=== PATIENT | female | born 1975 | race Caucasian/White ===

== ENCOUNTER 2021-01-10 06:00 | Day surgery (SDC) | payer OTHER ==
[~2021-01-10] VITALS: Ht 165.1 cm; Wt 93.0 kg
[2021-01-10 06:38] LABS: HCG,QUAL RESULT NEGATIVE (NEGATIVE)
[2021-01-10] MEDS ORDERED: DESFLURANE 15 MIN GAS INH ONE (07:22)
[2021-01-10] MEDS ORDERED: DEXAMETHASONE SOD PHOSPHATE 4 MG/ML VIAL IVP ONE (07:22)
[2021-01-10] MEDS ORDERED: MUPIROCIN 2% TOPICAL OINTMENT 22 GM TP ONE (07:22)
[2021-01-10] MEDS ORDERED: LR 500 ML IV.SOLN IV ONE (07:22)
[2021-01-10] MEDS ORDERED: LIDOCAINE/EPI 1% 1:100000 20 ML VIAL INJ ONE (07:22)
[2021-01-10] MEDS ORDERED: SUGAMMADEX SODIUM 200 MG/2 ML VIAL IV ONE (07:22)
[2021-01-10] MEDS ORDERED: ROCURONIUM BROMIDE 10 MG/ML (ZEMURON) IV ONE (07:22)
[2021-01-10] MEDS ORDERED: LIDOCAINE 2%, 20 ML MDV INJ ONE (07:22)
[2021-01-10] MEDS ORDERED: NS 1000 ML IV.SOLN IV ONE (07:22)
[2021-01-10] MEDS ORDERED: MIDAZOLAM HCL 5 MG/5 ML VIAL IVP ONE (07:22)
[2021-01-10] MEDS ORDERED: fentaNYL CITRATE 250 MCG/5 ML AMP IV ONE (07:22)
[2021-01-10] MEDS ORDERED: ONDANSETRON HCL 4 MG/2 ML VIAL IVP ONE (07:22)
[2021-01-10] MEDS ORDERED: NS IRRIG SOLN 1000 ML IR ONE (07:22)
[2021-01-10] MEDS ORDERED: PROPOFOL 200MG/ 20ML VIAL (DIPRIVAN) IV ONE (07:22)
[2021-01-10] MEDS ORDERED: OXYMETAZOLINE HCL 0.05% NASAL SPRAY NS ONE (07:22)
[2021-01-10] MEDS ORDERED: ACETAMINOPHEN I.V. 1000 MG 100 ML IV ONE (07:48)
[2021-01-10] MEDS ORDERED: LABETALOL 100 MG/ 20ML VIAL IVP PRN (08:15)
[2021-01-10] MEDS ORDERED: LR 1,000 ML IV SCH (08:15)
[2021-01-10] MEDS ORDERED: hydrALAZINE HCL 20 MG/ML VIAL IVP PRN (08:15)
[2021-01-10] MEDS ORDERED: HYDROmorphone 1 MG/ML INJ. CARTRIDGE IVP PRN ×2 (08:15)
[2021-01-10] MEDS ORDERED: MEPERIDINE HCL/PF 25 MG/ML DISP.SYRIN IVP PRN (08:15)
[2021-01-10] MEDS ORDERED: METOCLOPRAMIDE HCL 10 MG/2 ML VIAL IVP PRN (08:15)
[2021-01-10] MEDS ORDERED: MIDAZOLAM HCL 2 MG/2 ML VIAL (VERSED) IVP PRN (08:15)
[2021-01-10] MEDS ORDERED: ONDANSETRON HCL 4 MG/2 ML VIAL IVP PRN (08:15)
[2021-01-10 14:30] VITALS: BP_SYST 150
== END 2021-01-10 11:20 | disposition home or self-care (01) ==
LOC: SDS 06:00 → SMU 06:45 → SDS 11:20
PROVIDERS: ATTEND Otolaryngology
DX: J34.89 Other specified disorders of nose and nasal sinuses (principal); J30.1 Allergic rhinitis due to pollen; J34.2 Deviated nasal septum; N85.2 Hypertrophy of uterus; Z20.828 Contact with and (suspected) exposure to other viral communicable diseases
CPT/HCPCS: 30140; 30520; 84703; 88304; 88311; C9399; J0131; J1100; J2001; J2250; J2405; J2704; J3010; J3465; J7030; J7120; U0003